=== PATIENT | male | born 1990 | race Caucasian/White ===

== ENCOUNTER 2022-05-06 13:37 | Emergency (ER) | payer OTHER ==
[~2022-05-06] VITALS: Ht 172.7 cm; Wt 97.7 kg
[2022-05-06] MEDS ORDERED: SODIUM CHLORIDE 0.9% 1,000 ML IV ONE (15:00)
[2022-05-06] MEDS ORDERED: DiphenhydrAMINE HCL 50 MG/ML VIAL IVP ONE (15:00)
[2022-05-06] MEDS ORDERED: ONDANSETRON HCL 4 MG/2 ML VIAL IVP ONE (15:00)
[2022-05-06] MEDS ORDERED: METOCLOPRAMIDE HCL 5 MG/ML 2 ML VIAL IVP ONE (15:00)
[2022-05-06] MEDS ORDERED: ACETAMINOPHEN 500 MG TABLET PO ONE (15:00)
[2022-05-06 15:18] LABS: BASOPHILS % (AUTO) 0.5 % (0.0-2.0); EOSINOPHILS % (AUTO) 0.4 % (1.0-6.0); HEMATOCRIT 44.4 % (41-53); LYMPHOCYTES # (AUTO) 1.3 K/uL (1.0-4.8); LYMPHOCYTES % (AUTO) 10.8 % (22.0-44.0); MEAN CORPUSCULAR HEMOGLOBIN 29.1 pg (26.0-34.0); MEAN CORPUSCULAR HGB CONC 33.7 G/dL (31.0-37.0); MEAN CORPUSCULAR VOLUME 86 fL (80-100); MONOCYTES # (AUTO) 0.6 K/uL (0.1-1.0); MONOCYTES % (AUTO) 5.2 % (2.0-9.0); NEUTROPHILS % (AUTO) 83.1 % (40.0-70.0); PLATELET COUNT (AUTO) 243 K/uL (150-450); RED BLOOD CELL COUNT(AUTO) 5.14 MIL/uL (4.50-5.90); RED CELL DISTRIBUTION WIDTH 13.9 % (11.5-14.5)
[2022-05-06 15:26] LABS: ANION GAP 10 mmol/L (8-16); CARBON DIOXIDE 27 mmol/L (22-29); CHLORIDE 102 mmol/L (98-107); CREATININE 1.33 mg/dL (0.60-1.30); GLOMERULAR FILTR. RATE CALC > 60 mL/min (>60); GLUCOSE,RANDOM 110 mg/dL (70-110); POTASSIUM 3.9 mmol/L (3.5-5.1); SODIUM SERUM 139 mmol/L (136-145); UREA NITROGEN, BLOOD 16 mg/dL (7-18)
[2022-05-06 15:31] LABS: ALANINE AMINOTRANSFERASE 38 U/L (12-78); ALBUMIN 4.3 g/dL (3.4-5.0); ALKALINE PHOSPHATASE 56 U/L (46-116); ASPARTATE AMINOTRANSFERASE 20 U/L (15-37); BILIRUBIN,TOTAL 1.1 mg/dL (0.1-1.0); PHOSPHORUS 3.7 mg/dL (2.5-4.9)
[2022-05-06] MEDS ORDERED: MAGNESIUM SULFATE 1 GM in DEXTROSE 5%-WATER 50 ML IV ONE (15:45)
[2022-05-06] MEDS ORDERED: ONDA-104 PO (16:06)
[2022-05-06] MEDS ORDERED: ACET-3385 PO (16:06)
[2022-05-06] MEDS ORDERED: MAGNESIUM OXIDE 400 MG TABLET PO ONE (16:15)
[2022-05-06 16:32] VITALS: BP 132/88
== END 2022-05-06 16:33 | disposition home or self-care (01) ==
LOC: EMS 13:44
DX: G43.909 Migraine, unspecified, not intractable, without status migrainosus (principal); K21.9 Gastro-esophageal reflux disease without esophagitis; I10 Essential (primary) hypertension; F12.90 Cannabis use, unspecified, uncomplicated
CPT/HCPCS: 99284; 96374; 70450; 96375; 96361; 80053; 83735; 84100; 85025; 36415; J1200; J2765; J2405; J7060; J3475

== ENCOUNTER 2022-06-11 12:12 | Emergency (ER) | payer OTHER ==
[~2022-06-11] VITALS: Ht 175.3 cm; Wt 118.2 kg
[~2022-06-11 12:12] MED LIST: ACET-3385 PO; ONDA-104 PO
[2022-06-11] MEDS ORDERED: LORA10TA7 PO (12:25)
[2022-06-11] MEDS ORDERED: FAMO-290 PO (12:25)
[2022-06-11] MEDS ORDERED: LISI2.5T91 PO (12:25)
[2022-06-11] MEDS ORDERED: OMEP10 PO (12:25)
[2022-06-11] MEDS ORDERED: OMEP20 PO (12:57)
[2022-06-11] MEDS ORDERED: FAMO20 PO (12:57)
[2022-06-11] MEDS ORDERED: LISI-894 PO (12:57)
[2022-06-11 13:19] LABS: BASOPHILS % (AUTO) 0.1 % (0.0-2.0); EOSINOPHILS % (AUTO) 2.7 % (1.0-6.0); HEMATOCRIT 47.4 % (41-53); HEMOGLOBIN 15.6 g/dL (13.5-17.5); LYMPHOCYTES # (AUTO) 2.6 K/uL (1.0-4.8); LYMPHOCYTES % (AUTO) 17.3 % (22.0-44.0); MEAN CORPUSCULAR HEMOGLOBIN 28.8 pg (26.0-34.0); MEAN CORPUSCULAR HGB CONC 32.9 G/dL (31.0-37.0); MEAN CORPUSCULAR VOLUME 88 fL (80-100); MONOCYTES # (AUTO) 1.3 K/uL (0.1-1.0); MONOCYTES % (AUTO) 8.8 % (2.0-9.0); NEUTROPHILS # (AUTO) 10.5 K/uL (1.8-7.7); NEUTROPHILS % (AUTO) 71.1 % (40.0-70.0); PLATELET COUNT (AUTO) 299 K/uL (150-450); RED BLOOD CELL COUNT(AUTO) 5.41 MIL/uL (4.50-5.90)
[2022-06-11 13:39] LABS: ALANINE AMINOTRANSFERASE 80 U/L (12-78); ALKALINE PHOSPHATASE 70 U/L (46-116); ANION GAP 8 mmol/L (8-16); ASPARTATE AMINOTRANSFERASE 38 U/L (15-37); BILIRUBIN,TOTAL 1.6 mg/dL (0.1-1.0); CALCIUM, TOTAL 9.5 mg/dL (8.8-10.5); CARBON DIOXIDE 24 mmol/L (22-29); CHLORIDE 101 mmol/L (98-107); CREATININE 1.31 mg/dL (0.60-1.30); GLOMERULAR FILTR. RATE CALC > 60 mL/min (>60); GLUCOSE,RANDOM 81 mg/dL (70-110); LIPASE 133 U/L (73-393); POTASSIUM 4.1 mmol/L (3.5-5.1); SODIUM SERUM 133 mmol/L (136-145); TOTAL PROTEIN, SERUM 7.8 g/dL (6.4-8.2); UREA NITROGEN, BLOOD 21 mg/dL (7-18)
[2022-06-11 13:48] LABS: URIC ACID 9.5 mg/dL (2.6-7.2)
[2022-06-11] MEDS: PANTOPRAZOLE SODIUM 40 MG/VIAL IVP ONE (13:52)
[2022-06-11] MEDS: SODIUM CHLORIDE 0.9% 1,000 ML IV ONE (14:05)
[2022-06-11 14:19] VITALS: BP 133/73
[2022-06-11 14:23] LABS: APPEARANCE,URINE CLEAR (CLEAR); BILIRUBIN,URINE NEGATIVE (NEGATIVE); GLUCOSE, URINE (UA) NEGATIVE (NEGATIVE); KETONES,URINE NEGATIVE (NEGATIVE); LEUKOCYTE ESTERASE ,URINE NEGATIVE (NEGATIVE); NITRATE,URINE NEGATIVE (NEGATIVE); OCCULT BLOOD,URINE NEGATIVE (NEGATIVE); PROTEIN,URINE NEGATIVE (NEGATIVE); SPECIFIC GRAVITIY, URINE 1.015 (1.003-1.030); UROBILINOGEN,URINE <=1.0 mg/dL (<=1.0)
== END 2022-06-11 17:31 | disposition home or self-care (01) ==
LOC: EMS 12:16
DX: R10.10 Upper abdominal pain, unspecified (principal); E79.0 Hyperuricemia without signs of inflammatory arthritis and tophaceous disease; I10 Essential (primary) hypertension; K29.70 Gastritis, unspecified, without bleeding; K21.9 Gastro-esophageal reflux disease without esophagitis; R19.7 Diarrhea, unspecified
CPT/HCPCS: 99285; 74176; 96374; 76700; 96361; 80053; 81003; 83690; 84550; 85025; 36415; 93005; C9113; J7030